=== PATIENT | female | born 1970 | race Caucasian/White ===

== ENCOUNTER → 2023-07-12 18:42 | Outpatient (REF) | payer OTHER, SELFPAY | LOC: PAVMRI 18:42 | PROVIDERS: ATTENDING PHYSICIAN Specialist; FAMILY PHYSICIAN Family Medicine | DX: M54.16 Radiculopathy, lumbar region (principal); M46.1 Sacroiliitis, not elsewhere classified | CPT/HCPCS: 72148 ==